=== PATIENT | male | born 1995 | race Caucasian/White ===

== ENCOUNTER 2020-05-03 23:25 | Emergency (ER) | payer OTHER ==
[2020-05-04] MEDS ORDERED: AMOX/CLAV 875 MG/125 MG TABLET PO ONE (00:21)
[2020-05-04] MEDS ORDERED: oxyCODONE 5 MG TABLET ONE ×2 (00:21→01:34)
[2020-05-04] MEDS ORDERED: LIDOCAINE 1% 2 ML VIAL ONE (00:21)
--- NOTE | 2020-05-04 01:43 | ED Physician Documentation ---
ED Addendum - Addendum Addendum: 05/04/20 01:42 SEE PAPER CHART [facility]
== END 2020-05-04 01:56 | disposition home or self-care (01) ==
LOC: ED 23:25
DX: S61.012A Laceration without foreign body of left thumb without damage to nail, initial encounter (principal); W54.0XXA Bitten by dog, initial encounter; Y93.K9 Activity, other involving animal care
CPT/HCPCS: 12002; 99282